=== PATIENT | female | born 1980 | race Caucasian/White ===

== ENCOUNTER 2019-10-27 04:35 | Inpatient (IN) | payer MEDICAID, SELFPAY ==
[2018-03-03 17:41] VITALS: BMI 21.7
[2019-10-27] VITALS (37 sets, daily range): BP systolic 87–117; BP diastolic 50–71; PULSE 73–118; RESP 14–16; TEMP 36.3–37.7; O2SAT 97–100; BMI 29.0
[2019-10-27] MEDS: Lactated Ringers 1,000 ML 50 ML IV (05:10)
[2019-10-27 05:23] LABS: Absolute Lymphocyte Count 0.91 X10^3/uL (0.83-4.51); Absolute Neutrophil Count 5.1 X10^3/uL (2.0-7.7); Basophil# 0.03 X10^3/uL; Basophil% 0.4 % (0-1); Eosinophil# 0.08 X10^3/uL; Eosinophils% 1.2 % (0-5); Hematocrit 30.6 % (37-47); Hemoglobin 9.4 g/dL (12.0-15.0); Lymphocyte # 0.91 X10^3/ul (4.0); Lymphocyte % 13.4 % (19-41); Mean Corp Hgb Conc 30.7 g/dL (32-36); Mean Platelet Vol. 9.7 fl (6.2-12.0); Monocyte# 0.58 X10^3/uL; Monocyte% 8.6 % (0-10); NRBC Flagged by Analyzer 0 % (0-5); Neutrophil # 5.14 X10^3/uL (2.7-7.7); Neutrophil % 75.8 % (47-70); Platelet Count 184 K/mm3 (150-450); RBC Distribution Width CV 15.1 % (11.6-14.6); RBC Distribution Width SD 40.9 fl (35.1-43.9); Red Blood Count 4.08 M/mm3 (4.2-5.4); White Blood Count 6.8 K/mm3 (4.4-11.0)
[2019-10-27] MEDS: Lactated Ringers 500 ML 999 ML IV ×2 (06:18→06:50)
[2019-10-27] MEDS: fentaNYL-bupivacaine (epidural) 100 ML BAG EPIDURAL (07:00)
--- NOTE | 2019-10-27 09:07 | PCM.HP.OB ---
History Date of Admission: 10/27/19 Final DONNA: 10/27/19 Final DONNA Source: US <20 weeks Gestational age: 40 Weeks and 0 Days History of this : This is a 39 year-old, w/ SROM at 330 am. Ctxs increased in intensity. Good Fm complicated to date by advanced maternal age. Medical History: Medical History (Last Updated 03/03/18 @ 17:47 by Corrine Heller) Gave to child recently Z39.0 Allergies No Known Allergies Allergy (Verified 07/03/17 07:19) Home Medications: Home Medications Vit No.130/Iron/Folic [ Tablet] 1 ea PO DAILY 10/27/19 Smoking Status: Never smoker Alcohol: None Number of Fetus(es): 1 NST - FHR Rate Baby A Baseline: normal baseline Variability:: Moderate Accelerations:: 15 x 15 Decelerations:: None NST Reactive:: Yes FHR Category:: Category I Uterine Activity:: ctxs noted History Past Pregnancies: Past Pregnancies Delivery Date Name GA/ Weeks Outcome Route Wt Sex Labor Length Anesthesia Delivery Location Provider FOB Expected Infant Delivery Method: Spontaneous Vaginal Review of Systems Constitutional: Denies: Chills, Fever Eyes: Denies: Blurred vision Cardiovascular: Denies: Chest Pain Respiratory: Denies: Cough Genitourinary: Denies: Dysuria Skin: Denies: Rash Physical Exam Vitals: Vital Signs Temp Pulse BP Pulse Ox 98.9 F 89 87/50 L 100 10/27/19 08:20 10/27/19 08:20 10/27/19 08:20 10/27/19 08:20 General: Alert, Cooperative, No apparent distress Cardiovascular: Regular rate Lungs: Normal air movement Abdomen: Soft, Non Tender, Non-Distended, Gravid, Appropriate for Gestational Age Neurological: Cranial nerves II-XII grossly intact [employer] AND [employer]AMINER: Normal external genitalia Estimated gestational size: Appropriate for gestational size Assessment/Plan All Active Problems (Last Updated 03/03/18 @ 17:47 by Corrine Heller) Laceration of right little finger (Acute) This is a 39 year-old, 5 para 4 admitted at 3 weeks gestation in labor. Epidural if desires. Estimated weight is less than 4500 g and pelvis clinically adequate to expect vaginal delivery.
[2019-10-27] MEDS: Oxytocin 30 units/NS 500 ml 30 UNITS/500 ML IV.SOLN 334 UNITS IV (10:09)
--- NOTE | 2019-10-27 10:23 | PCM.OPRPT ---
Report of Operation Date of Procedure: 10/27/19 Vaginal Delivery Maternal Presentation: Active Labor, Spontaneous Rupture of Membranes Amniotic Membrane Rupture Type: Spontaneous at home Amniotic Fluid Description: Clear Final DONNA: 10/27/19 Final DONNA Source: US <20 weeks Gestational age: 40 Weeks and 0 Days Date of Procedure: 10/27/19 Pre-Operative Diagnosis: advanced maternal age, grand multiparous patient Surgery/ Procedure Performed: Spontaneous Vaginal Delivery Type of Anesthesia: Epidural Description of Procedure: A vigorous female infant was delivered JACKELINE over first-degree perineal laceration. The anterior shoulder did not deliver easily. At that point, I asked the nurses to take the patient's legs back in modified Naresh position, and asked the patient to give a hearty push. The anterior shoulder still did not deliver so I attempted to deliver the posterior shoulder which did not deliver. I attempted to rotate the infant slightly and the anterior shoulder which was the right shoulder, still did not deliver. Extra personnel arrived in the room. Suprapubic pressure was then initiated. I then attempted to rotate the posterior shoulder and then with maternal pushing efforts and minimal traction the posterior shoulder delivered and then the anterior shoulder delivered. The remainder the infant delivered in less than 10 seconds without difficulty. The Pitocin infusion was initiated for active management of the third stage. The cord was clamped and cut immediately and the was transferred to the warmer where it was quickly vigorous and transferred back to the maternal abdomen. The infant was attended to by the waiting nursing staff. The placenta was delivered spontaneously and intact. The cervix and vagina were intact. The first-degree perineal laceration was repaired with 3-0 Vicryl suture in a running standard fashion. Sponge and needle counts were correct. A vaginal sweep was completed by me. Presentation: JACKELINE Placental Delivery Description: Spontaneous Placenta Disposition: [facility] Cord Vessel Description: 3 Vessels Cord Entanglement: None Drain: - - none Estimated Blood Loss: 300 Infant A gender: Female - Josefina (1 minute): 6 (5 minute): 9 Episiotomy Description: None Laceration: 1st degree Medications given after delivery: IV Pitocin
[2019-10-27] MEDS: Acetaminophen 500 MG Tablet 1000 MG PO (11:13)
[2019-10-28] MEDS: Naproxen 250 MG Tablet 500 MG PO (01:58)
[2019-10-28 04:45] VITALS: BP 100/53; PULSE 62; RESP 18; TEMP 36.3
--- NOTE | 2019-10-28 08:06 | PCM.PN.OB ---
Subjective: PT seen at bedside, doing well. pt reports good pain control. lochia mild. breast feeding well. - Physical Exam Vitals/I&O's: Vital Signs Temp Pulse Resp BP Pulse Ox 97.4 F L 62 18 100/53 L 100 10/28/19 04:45 10/28/19 04:45 10/28/19 04:45 10/28/19 04:45 10/27/19 08:20 Oxygen Delivery Method Room Air Weight: 67.4 kg Body Mass Index (BMI) 29.0 Intake and Output for Last 24 Hours 10/26/19 10/27/19 10/28/19 23:59 23:59 23:59 Intake Total 2250.37 / 2250.37 Output Total 1800 / 1800 Balance 450.37 / 450.37 General: Alert, Oriented x3 Current Medications Acetaminophen (Tylenol) 1,000 mg PO Q8H PRN PRN PRN Reason: Pain Score 1-3/10 Last Admin: 10/27/19 11:13 Dose: 1,000 mg Documented by: Bisacodyl (Dulcolax) 10 mg RECTAL UD PRN PRN Reason: If no BM Dibucaine (Dibucaine) 1 applic TOPICAL TID PRN PRN; Protocol PRN Reason: Discomfort Hydrocortisone (Hytone) 1 applic TOPICAL TID PRN PRN; Protocol PRN Reason: Discomfort Methylergonovine Maleate (Methergine) 0.2 mg IM X1 PRN PRN Reason: Excess bleeding/uterine atony Naproxen (Naprosyn) 500 mg PO Q8H PRN PRN PRN Reason: Pain Score 1-3/10 Last Admin: 10/28/19 01:58 Dose: 500 mg Documented by: Ondansetron HCl (Zofran) 4 mg IV Q4H PRN PRN PRN Reason: Nausea Prochlorperazine Edisylate (Compazine Iv) 10 mg IV Q6H PRN PRN PRN Reason: NAUSEA/VOMITING Senna/Docusate Sodium (Senokot-S, Rose-Colace) 1 - 2 tablet PO DAILY PRN PRN PRN Reason: Constipation Simethicone (Mylicon) 80 mg PO PCHS PRN PRN Reason: Indigestion/Stomach pain Sodium Chloride () 5 - 15 ml IV UD PRN PRN Reason: SALINE FLUSH Medical Necessity - Tobacco Use Smoking Status: Never smoker Assessment/Plan All Active Problems (Last Updated 03/03/18 @ 17:47 by Corrine Heller) Laceration of right little finger (Acute) PPD#1, doing well routine care pain mgmt dc home
--- NOTE | 2019-10-28 08:08 | DCINST_ITS ---
Discharge Diet: No Restrictions Discharge Activity: Return to Normal Activity, May not drive while taking narcotic pain medications., May Shower May resume sexual activity in: 4-6 weeks Additional Activity Instructions:: Nothing in the vagina for 4-6 weeks. You may return to work/school in 6 weeks. Call your doctor if your incision/area has: Continuous Slow Oozing, Sudden Increased Bleeding, Increased Pain/ Swelling, Increased Redness, Foul Smelling Discharge Additional Instructions: If you experience any of the following, contact your healthcare provider. * Bleeding that soaks a pad every hour for 2 hours * Fever 100.4 or higher * Unrelieved incision or abdominal pain * Swelling, redness, discharge or bleeding from your incision or episiotomy site * Your incision begins to separate * Problems urinating (including inability to urinate or burning while urinating). * Visual changes * Severe headache * Flu-like symptoms * Pain or redness in one of both of your breasts * Pain, warmth, tenderness or swelling in your legs, especially the calf area * Frequent nausea and vomiting * Symptoms of depression or anxiety If you experience any of the following, call 911 or go to the nearest Emergency Room. * Chest pain * Problems breathing * Seizure activity * Partial or complete paralysis of a body part, slurred speech, weakness or drooping of the face, or a sudden inability to walk or hold your balance Allergies/Adverse Reactions: Allergies No Known Allergies Allergy (Verified 07/03/17 07:19) Medications to take at Discharge Vit No.130/Iron/Folic [ Tablet] 1 ea PO DAILY 10/27/19 When: Call to make an appointment with your doctor in 6 weeks. If you had elevated Blood Pressure or 4th degree laceration you will need to be seen in 2 weeks. Primary Care Physician: Care Physician,No Primary [Primary Care Provider] - Test Results: Test results from this visit will be discussed in further detail at your follow- up appointment, if applicable.
[2019-10-28 08:40] VITALS: BP 101/59; PULSE 77; RESP 16; TEMP 36.2; O2SAT 99
== END 2019-10-28 12:05 | disposition home or self-care (01) | DRG 560 ==
PROVIDERS: Admitting Provider Advanced Practice Midwife; Referring Provider Advanced Practice Midwife; Visit Provider Advanced Practice Midwife
DX: O70.0 First degree perineal laceration during delivery (principal); Z37.0 Single live birth; Z3A.40 40 weeks gestation of pregnancy
CPT/HCPCS: 59025; 59050; 85025; 86850; 86900; 86901; 99218; J7120; G0378

== ENCOUNTER 2023-01-22 07:00 | Inpatient (IN) | payer MEDICAID, SELFPAY ==
[2023-01-22] VITALS (36 sets, daily range): BP systolic 84–133; BP diastolic 51–72; PULSE 70–180; RESP 16; TEMP 36.2–36.6; O2SAT 82–99; BMI 29.2
[2023-01-22] MEDS: Lactated Ringers 1,000 ML 50 ML IV (07:55)
[2023-01-22 08:15] LABS: Absolute Lymphocyte Count 1.11 X10^3/uL (0.83-4.51); Absolute Neutrophil Count 5.4 X10^3/uL (2.0-7.7); Basophil# 0.02 X10^3/uL; Basophil% 0.3 % (0-1); Eosinophil# 0.09 X10^3/uL; Eosinophils% 1.3 % (0-5); Hematocrit 37.1 % (37-47); Hemoglobin 12.3 g/dL (12.0-15.0); Lymphocyte # 1.11 X10^3/ul (0.83-4.51); Lymphocyte % 15.5 % (19-41); Mean Corp Hgb Conc 33.2 g/dL (32-36); Mean Corpuscular Hgb 28.3 pg (27.0-32.0); Mean Corpuscular Volume 85.3 fL (81-99); Mean Platelet Vol. 9.1 fl (6.2-12.0); Monocyte# 0.56 X10^3/uL; Monocyte% 7.8 % (0-10); NRBC Flagged by Analyzer 0 % (0-5); Neutrophil # 5.36 X10^3/uL (2.7-7.7); Neutrophil % 74.5 % (47-70); Platelet Count 151 K/mm3 (150-450); RBC Distribution Width CV 14.3 % (11.6-14.6); RBC Distribution Width SD 44.2 fl (35.1-43.9); Red Blood Count 4.35 M/mm3 (4.2-5.4); White Blood Count 7.2 K/mm3 (4.4-11.0)
[2023-01-22] MEDS: Oxytocin 15 Units/NS 250ml 15 UNITS/250 ML IV.SOLN 2 UNITS IV (08:20)
[2023-01-22 08:45] LABS: Syphilis Antibodies Non-reactive
[2023-01-22] MEDS: LACTATED RINGERS 500 ML 999 ML IV (11:40)
--- NOTE | 2023-01-22 11:47 | PCM.HP.OB ---
HPI - General General Date of Admission: 01/22/23 Date of Service: 01/29/23 Chief Complaint: 39 weeks HPI Narrative MONICA GARCIA, is a 42 F who presents for induction. Maternal Data Information Final DONNA: 01/29/23 Gestational age: 39 weeks PFS PFS Medical History Gave to child recently Home Medications vits no.130-ferrous fum 27 mg iron-folic acid 800 mcg tablet 1 ea PO DAILY Check with primary doctor 10/27/19 [History Last Taken 10/27/19 2 tablets] Allergy/AdvReac Type Severity Reaction Status Date / Time No Known Allergies Allergy Verified 07/03/17 07:19 Social History Smoking Status: Never smoker History Elective abortions Hx Para 5 Spontaneous abortions Hx # Term Pregnancies Ectopic pregnancies Hx # Pregnancies Multiple births # of living children NST FHR Rate Baby A Baseline: 135 Variability:: Moderate Accelerations:: 15 x 15 Decelerations:: None Uterine Activity:: 2-6 minutes Vital Signs Vital Signs Vital Signs: 01/22/23 07:26 01/22/23 07:26 01/22/23 07:28 Temperature Temperature Source Pulse Rate 106 H 149 H Blood Pressure 116/72 BP Systolic 116 BP Diastolic 72 Pulse Ox 01/22/23 07:28 01/22/23 08:20 01/22/23 08:20 Temperature Temperature Source Pulse Rate 87 Blood Pressure 115/66 BP Systolic 115 BP Diastolic 66 Pulse Ox 82 01/22/23 08:55 01/22/23 08:55 01/22/23 09:46 Temperature Temperature Source Pulse Rate 99 Blood Pressure 117/66 101/58 L BP Systolic 117 101 BP Diastolic 66 58 Pulse Ox 01/22/23 09:46 01/22/23 09:46 01/22/23 09:46 Temperature 97.4 F L Temperature Source Temporal Pulse Rate 90 Blood Pressure BP Systolic BP Diastolic Pulse Ox 01/22/23 10:38 01/22/23 10:38 01/22/23 11:25 Temperature Temperature Source Pulse Rate 93 Blood Pressure 102/57 L 106/61 BP Systolic 102 106 BP Diastolic 57 61 Pulse Ox 01/22/23 11:25 Temperature Temperature Source Pulse Rate 85 Blood Pressure BP Systolic BP Diastolic Pulse Ox Weight Weight: 149 lb 7.574 oz Body Mass Index (BMI) 29.2 Physical Exam Const alert, oriented x3 and no apparent distress GI soft to palpation, non-tender and non-distended Inspection: gravid external exam normal Narrative: cvx - 4/70/-2, AROM clear fluid Labs Labs Labs: Blood Type O POSITIVE Antibody Screen NEGATIVE Hct 37.1 % (37-47) Hgb 12.3 g/dL (12.0-15.0) Syphilis Total Ab Non-reactive Rubella IgG Antibody 67.1 IU/mL Hep Bs Antigen Negative (Negative) Group B Strep DNA Negative (Negative) Rhogam given: No See [facility] H&P Assessment & Plan (1) Advanced maternal age (AMA), 40 years or greater: COMMENT: @ 39 weeks PLAN: Admit to L&D Induction - continue pitocin, s/p AROM Pain - getting epidural EFW - less than 4500g, patient with adequate pelvis GBS negative Routine care
[2023-01-22] MEDS: Lactated Ringers 1,000 ML 250 ML IV (11:55)
[2023-01-22] MEDS: fentaNYL-bupivacaine (epidural) 100 ML BAG EPIDURAL (12:07)
[2023-01-22] MEDS: Ondansetron 4 MG/2 ML Vial IV (15:03)
--- NOTE | 2023-01-22 15:38 | EX.PCM.OBRPT ---
Maternal Data Information Final DONNA: 01/29/23 Gestational age: 39 weeks Vaginal Delivery Maternal Presentation Maternal Presentation: Medically Indicated Induction Type of Induction: Pitocin and Amniotomy Operative Information Date of Procedure: 01/22/23 Pre-Operative Diagnosis: Advanced maternal age Post-Operative Diagnosis: same Surgery / Procedure Performed: Spontaneous Vaginal Delivery Type of Anesthesia: Epidural Estimated Blood Loss: 300ml Findings Description of Procedure: Patient prepped & draped when C/C/+2. She pushed well to deliver the head. head gently guided to allow delivery of anterior and posterior shoulders. No excess traction placed on head. Body delivered and 3VC clamped & cut in delayed fashion. Placenta delivered with gentle traction and good uterine tone obtained. Presentation: CHRISTIAN Amniotic Membrane Rupture Type: Spontaneous Amniotic Fluid Description: Clear Placental Delivery Description: Expressed Placenta Disposition: [facility] Specimen(s) Removed: Placenta Cord Vessel Description: 3 Vessels Cord Entanglement: None A Gender: Male (Jovani) (1 minute): 7 (5 minute): 8 Delayed Cord Clamping: Yes Post Vaginal Delivery Medications Given After Delivery: IV Pitocin Episiotomy Description: None Laceration: None Complication Complications: None
[2023-01-22] MEDS: Oxytocin 15 Units/NS 250ml 15 UNITS/250 ML IV.SOLN 83 UNITS IV (16:25)
[2023-01-22] MEDS: Ibuprofen 600 MG Tablet PO (17:12)
[2023-01-23 03:38] VITALS: BP 97/54; PULSE 78
[2023-01-23 03:39] VITALS: BP 97/54; PULSE 77; PULSE 78; RESP 16; TEMP 36.4; O2SAT 95
[2023-01-23] MEDS: Ibuprofen 600 MG Tablet PO (03:41)
--- NOTE | 2023-01-23 07:17 | PCM.PN.OB ---
Subjective Subjective No complaints Objective Data Objective Data Vital Signs: Vital Signs Temp Pulse Resp BP Pulse Ox O2 Del Method 97.6 F L 77 16 97/54 L 95 Room Air 01/23/23 03:39 01/23/23 03:39 01/23/23 03:39 01/23/23 03:39 01/23/23 03:39 01/23/23 03:39 Oxygen Delivery Method Room Air Weight: 149 lb 7.574 oz Body Mass Index (BMI) 29.2 Intake & Output: Intake and Output for Last 24 Hours 01/21/23 01/22/23 01/23/23 23:59 23:59 23:59 Intake Total 3174.04 / 3174.04 Output Total 1100 / 1100 650 / 650 Balance 2074.04 / 2074.04 -650 / -650 Lab / Micro Data Result Diagrams: 01/22/23 07:55 Labs: Laboratory Results - last 24 hr 01/22/23 07:55: WBC 7.2, RBC 4.35, Hgb 12.3, Hct 37.1, MCV 85.3, MCH 28.3, MCHC 33.2, RDW Std Deviation 44.2 H, RDW Coeff of Crys 14.3, Plt Count 151, MPV 9.1, Immature Gran % (Auto) 0.600, Neut % (Auto) 74.5 H, Lymph % (Auto) 15.5 L, Shannon % (Auto) 7.8, Eos % (Auto) 1.3, Baso % (Auto) 0.3, Absolute Neuts (auto) 5.4, Absolute Lymphs (auto) 1.11, Nucleated RBC % 0 01/22/23 07:55: Blood Type O POSITIVE, Antibody Screen NEGATIVE 01/22/23 07:55: Syphilis Total Ab Non-reactive Physical Exam Const alert, oriented x3 and no apparent distress HEENT normocephalic GI soft to palpation, non-tender and non-distended GI Narrative: fundus firm, mid & below umbilicus Extremity normal to inspection and no calf tenderness Assessment & Plan (1) care following vaginal delivery: PLAN: Discharge to home later today per patient request
--- NOTE | 2023-01-23 07:19 | DCINST_ITS ---
Discharge Instructions Diet Discharge Diet: No restrictions Activity Discharge Activity: May Shower May resume sexual activity in: 6 weeks Weight Bearing Status: Weight bearing as tolerated Dressing / Incision Call your doctor if you observe: Fever of 101 or Higher, Coldness, Increased Pain, Change in Color, Inability to urinate, Inability to have a bowel movement, Using more than 1 pad per hour, Shortness of breath, Dizziness, Fainting spells, Chest pain, Increased palpitations (irregular heartbeat), Calf discomfort and Uncontrolled pain Cleanse incision/area with: Soap & Water Follow Up Care Please Follow Up With: Alejandro Farmer MD When: Follow up in 2 and 6 weeks for visits. Test Results: Test results from this visit will be discussed in further detail at your follow- up appointment, if applicable. Discharge Plan Admission Admit Date/Time: 01/22/23 07:00 Primary Reason for Your Visit: Vaginal delivery Attending Provider: Alejandro Farmer Primary Care Provider: Prem PhysicianJuani Primary Discharge Orders/Prescriptions Prescriptions: New acetaminophen 500 mg Tablet 1,000 mg PO Q6H PRN PRN (Reason: Pain 1-10 Or Fever) Qty: 0 0RF ibuprofen 600 mg Tablet 600 mg PO Q6H PRN PRN (Reason: Pain Score 1-3) Qty: 0 0RF Continued vit no.485-[id number] 1 EACH tablet 1 ea PO DAILY Referrals / Follow Up: Care PhysicianJuani Primary [Primary Care Provider] - Disposition Disposition (needs filled in before D/C Order can be placed): Home, Self Care
--- NOTE | 2023-01-23 07:40 | NURSING ---
report given to Arley Nelson RN who is assuming care of pt at this time
[2023-01-23 09:59] VITALS: BP 89/53; PULSE 84; O2SAT 97
[2023-01-23 10:00] VITALS: BP 89/53; PULSE 88; RESP 14; TEMP 36.3; O2SAT 97
[2023-01-23 13:42] VITALS: PULSE 84; O2SAT 98
[2023-01-23 13:44] VITALS: BP 102/58; PULSE 84; PULSE 85; RESP 14; TEMP 36.3; O2SAT 99
== END 2023-01-23 16:40 | disposition home or self-care (01) | DRG 560 ==
PROVIDERS: Advanced Practice Midwife; Admitting Provider Obstetrics & Gynecology; Referring Provider Obstetrics & Gynecology; Visit Provider Obstetrics & Gynecology
DX: O26.23 Pregnancy care for patient with recurrent pregnancy loss, third trimester (principal); Z37.0 Single live birth; Z3A.39 39 weeks gestation of pregnancy
CPT/HCPCS: 59025; 59050; 85025; 86780; 86850; 86900; 86901; 99221; J7120; G0378; J2405